=== PATIENT | female | born 1935 | race Caucasian/White ===

== ENCOUNTER 2016-09-16 10:47 | Emergency (ER) | payer OTHER ==
[2016-09-16 11:13] VITALS: BP 144/89; PULSE 85; RESP 18; TEMP 98; O2SAT 97
--- NOTE | 2016-09-16 11:57 | UCPHY ---
H & P Time Seen by Provider: 09/16/16 10:52 Patient Type: New HPI/ROS: CHIEF COMPLAINT: Right-sided back pain HISTORY OF PRESENT ILLNESS: 81-year-old female with a history of vertigo and frequent falls presents with right-sided back pain. 5 evenings ago, she tripped and fell over a basketball and landed onto her left hip. She was able to get up unassisted and did not have any pain afterwards. The following morning, she was getting back into bed, when the heating pad on the bed slipped and she fell backwards onto her buttocks. Immediate onset of right-sided back pain and difficulty with walking. She has been taking Percocet with some relief. She has almost run out of her Percocet, which is the reason for her visit today. She usually uses a walker to ambulate, but [place] and [place] her walker with her. She has a history of lumbar kyphoplasty. Recent MRI demonstrated a new compression fracture in the lumbar spine and she is scheduled to have a subsequent kyphoplasty when she returns home. REVIEW OF SYSTEMS: Constitutional: No fever Eyes: No visual changes ENT: No sore throat Respiratory: No cough, no shortness of breath Cardiac: No chest pain Gastrointestinal: no vomiting, no abdominal pain Genitourinary: no dysuria Skin: No rash Neurological: No headache, no weakness Psychiatric: No depression Past Medical/Surgical History: Vertigo Frequent falls Social History: Smoking Status: Never smoked Physical Exam: General Appearance: Alert, pleasant Eyes: Pupils equal and round, no conjunctival pallor ENT, Mouth: Mucous membranes moist Neck: Normal inspection Respiratory: Lungs are clear to auscultation Cardiovascular: Regular rate and rhythm Gastrointestinal: Abdomen is soft and nontender Back: Mild midline tenderness, moderate tenderness over the iliac crest Neurological: A&O, nonfocal, normal gait Skin: Warm and dry, no rash Extremities: right hip-nontender, range of motion without pain Psychiatric: Mood and affect normal Constitutional: Initial Vital Signs Temperature (C) 36.6 C 09/16/16 11:07 Heart Rate 85 09/16/16 11:07 Respiratory Rate 18 09/16/16 11:07 Blood Pressure 144/89 H 09/16/16 11:07 O2 Sat (%) 97 09/16/16 11:07 O2 Delivery Mode Room Air Allergies/Adverse Reactions: No Known Allergies Allergy (Unverified 09/16/16 11:07) Home Medications: Medication Instructions Recorded oxyCODONE/APAP 5/325 [Percocet 1 tab PO Q4 PRN #20 tab 09/16/16 5/325 (*)] Medical Decision Making - Diagnostics Imaging: Right hip x-ray independently reviewed by me reveals no acute fracture Lumbar spine x-ray independently reviewed by me reveals prior kyphoplasty at L1 and L3. There is also an L2 compression fracture, unclear if this is new or old. ED Course/Re-evaluation: X-ray results discussed with the patient. After discussion with the patient and her , the visible lumbar compression fracture is likely subacute and she is scheduled to have kyphoplasty at this level. I discussed with the patient and her in obtaining advanced imaging of the pelvis. The patient declines at this time. She would simply like a prescription for Percocet and declines further testing. I have encouraged her to use a walker when she ambulates. Differential Diagnosis: Differential diagnosis for back pain includes muscular pain, herniated disc, epidural abscess, discitis, spine fracture, intra-abdominal causes and urinary tract infection. Departure - Departure Disposition: Home, Routine, Self-Care Clinical Impression: Low back strain Qualifiers: Encounter type: initial encounter Qualified Code(s): S39.012A - Strain of muscle, fascia and tendon of lower back, initial encounter Condition: Good Instructions: Low Back Strain (ED) Additional Instructions: Ibuprofen 600 mg 3 times daily while the pain persists. Please use a walker when you ambulate. Return with any concerns. Follow up with your physician when you arrive home. Referrals: Doctor Not,On Staff, MD [Primary Care Provider] - As per Instructions Prescriptions: oxyCODONE/APAP 5/325 [Percocet 5/325 (*)] 1 tab PO Q4 PRN #20 tab PRN Reason: pain - PQRS PQRS Measurement: 134: Depression screening and followup, PRIME MD-PHQ2 (12 years and older) Over the last 2 weeks, how often have you been bothered by any of the following problems? 1. Feeling down, depressed, or hopeless? 2. Little interest or pleasure in doing things? Patient answered no to both 1 and 2 130: Documentation of medications. Reviewed all patient medications, doses, route and frequency. 226: Do you smoke? No. 47: 65 and older: Advanced care planning. Patient designates surrogate decision maker as spouse. 51: 18 years old and older with diagnosis of COPD, spirometry performance. Patient has no history of COPD 52: 18 years old and older with COPD and symptoms of COPD or FEV1<60% predicted prescribed a B Agonist. NA
== END 2016-09-16 12:11 | disposition home or self-care (01) ==
LOC: CED 10:47
DX: S39.012A Strain of muscle, fascia and tendon of lower back, initial encounter (principal); W01.0XXA Fall on same level from slipping, tripping and stumbling without subsequent striking against object, initial encounter; Z91.81 History of falling; R29.6 Repeated falls
CPT/HCPCS: 72100; 73502; G0463